=== PATIENT | female | born 2000 | race Caucasian/White ===

== ENCOUNTER 2021-10-11 11:11 | Outpatient (CLI) | payer BC, MEDICAID, SELFPAY ==
[2021-10-11] VITALS (12 sets, daily range): BP systolic 116–137; BP diastolic 68–90; PULSE 71–97; RESP 18; TEMP 36.7–37.9; BMI 41.3
--- NOTE | 2021-10-11 13:35 | PC.NURSE ---
TEMP DONE WITH A DIFFERENT THERMOMETER BECAUSE I WAS TOLD THAT THE ONE IN OB 13 HAS BEEN READING VERY DIFFERENT TEMPERATURES. SO TEMP WITH MONITORS THERMOMETER WAS 99.1 AND WITH DIFFERENT ONE WAS 98.1 ORALLY.
[2021-10-11 13:39] LABS: Amphetamines Screen Urine Negative (Negative); Barbiturates Screen Urine Negative (Negative); Benzodiazepines Screen Urine Negative (Negative); Cocaine Screen Urine Negative (Negative); Opiate Screen Urine Negative (Negative); PCP Screen Urine Negative (Negative); THC Screen Urine Negative (Negative)
[2021-10-11 15:22] LABS: Adenovirus Not Detected (NOT DETECT); Chlamydia Pneumoniae Not Detected (NOT DETECT); Coronavirus 229E,HKU1,NL63,OC4 Not Detected (NOT DETECT); Human Metapneumovirus Not Detected (NOT DETECT); Human Rhinovirus/Enterovirus Not Detected (NOT DETECT); Influenza A Not Detected (NOT DETECT); Influenza A H1 Not Detected (NOT DETECT); Influenza A H1-2009 Not Detected (NOT DETECT); Influenza A H3 Not Detected (NOT DETECT); Influenza B Not Detected (NOT DETECT); Mycoplasma Pneumoniae Not Detected (NOT DETECT); Parainfluenza Virus Type 1 Not Detected (NOT DETECT); Parainfluenza Virus Type 2 Not Detected (NOT DETECT); Parainfluenza Virus Type 3 Not Detected (NOT DETECT); Parainfluenza Virus Type 4 Not Detected (NOT DETECT); Respiratory Syncytial Virus A Not Detected (NOT DETECT); Respiratory Syncytial Virus B Not Detected (NOT DETECT); SARS-COV-2 Not Detected (NOT DETECT)
== END 2021-10-11 22:31 | disposition home or self-care (01) ==
LOC: OPOB 11:12 → OBGYN 11:13
PROVIDERS: Family Provider Nurse Practitioner; PCP Nurse Practitioner; Visit Provider Family Medicine
DX: O26.899 Other specified pregnancy related conditions, unspecified trimester (principal); Z3A.00 Weeks of gestation of pregnancy not specified; R10.9 Unspecified abdominal pain
CPT/HCPCS: 59025; 80306; 87081; 87491; 87635; 99211

== ENCOUNTER 2021-10-11 23:44 | Inpatient (IN) | payer BC, MEDICAID, SELFPAY ==
[2021-10-11] VITALS (8 sets, daily range): BP systolic 120–137; BP diastolic 74–83; PULSE 74–109; RESP 16–18; BMI 41.3
[2021-10-12] VITALS (92 sets, daily range): BP systolic 85–167; BP diastolic 47–100; PULSE 65–129; RESP 16–18; TEMP 36.4–36.9; O2SAT 98–100
[2021-10-12] MEDS: lactated ringers 1,000 ML 999 ML IV ×2 (00:13→01:44)
[2021-10-12] MEDS: ampicillin 2,000 MG in sodium chloride 0.9% (plus) 50 ML 100 MG IV (00:13)
[2021-10-12 00:23] LABS: Basophils % 0.2 %; Eosinophils # 0.1 10^3/uL (0.0-0.8); Eosinophils % 0.5 %; Hematocrit 34.8 % (37.0-47.0); Hemoglobin 11.3 g/dL (11.5-15.3); Lymphocytes % 14.9 %; Mean Corpuscular HGB Conc 32.5 g/dL (30.0-36.0); Mean Corpuscular Hemoglobin 25.6 pg (28.0-34.0); Mean Corpuscular Volume 78.7 fl (81-99); Mean Platelet Volume 10.5 fL (7.4-10.4); Monocytes # 0.6 10^3/uL (0.2-0.9); Monocytes % 4.6 %; Neutrophils % 79.3 %; Nucleated Red Blood Cells % 0 %; Platelet Count 381 10^3/cmm (130-400); Red Blood Count 4.42 10^6/uL (4.1-5.3); Red Cell Distribution Width 15.4 % (12.1-15.1); White Blood Count 13.1 10^3/uL (4.0-10.0)
[2021-10-12] MEDS: fentaNYL 50 mcg/mL INJ 2mL IVP (00:53)
--- NOTE | 2021-10-12 01:25 | ANES.PREANE2 ---
Pre-Anesthetic Assessment Pre-Anesthetic Assessment: Height/Weight: Height 1.57 m Weight 102.512 kg Pulse Resp BP Pulse Ox 116 H 16 167/77 99 10/12/21 01:23 10/12/21 00:53 10/12/21 01:23 10/12/21 01:21 Preop Diagnosis: Term labor Proposed Procedure: CHRIS Was Beta Talisha taken within 24 hours: N/A Was Clonidine taken within 24 hours: N/A Social: Social History: No alcohol and No tobacco Exam: Pre-Anes Outpt Exam: alert, oriented x 3, clear to auscultation bilaterally and regular rate & rhythm Airway: Submandibular: WNL Cervical ROM: WNL MP: 2 Dentition: Full History/ROS: No significant history except as noted and No significant complaints Pulmonary: Pulmonary: None reported CV/HEM: CV/HEM: None reported : : None reported Hepatic: Hepatic: None reported GI: GI: None reported Metabolic: Metabolic: None reported Musc/skel: Musc/skel: None reported Neuropsych: Neuropsych: None reported Anesthetic Plan: ASA status: 2 Anesthesia: Anesthesia Evaluation and Regional (specify below) Risk of > 500 ml blood loss (7ml/kg in children): No Meds/Allergies Current Medications: Current Medications Generic Name Dose Route Start Last Admin Trade Name Freq PRN Reason Stop Dose Admin Fentanyl 25 - 100 mcg 10/11/21 23:41 10/12/21 00:53 Fentanyl 50 Mcg/ Ml Inj 2ml IVP 25 mcg Q1H PRN Administration SEVERE PAIN Lactated Ringer's 1,000 mls @ 999 m ls/hr 10/11/21 23:42 10/12/21 00:13 Lactated Ringers IV 999 mls/hr .Q1H1M PRN Administration See label comment s PFSH Anesthesia Female Reproductive History: : 1 Data Anesthesia CBC & Chem 7: 10/12/21 00:00 Other Labs: Laboratory Results - last 48 hr 10/12/21 00:00 WBC 13.1 H RBC 4.42 Hgb 11.3 L Hct 34.8 L MCV 78.7 L MCH 25.6 L MCHC 32.5 RDW 15.4 H Plt Count 381 MPV 10.5 H Neut % (Auto) 79.3 Lymph % (Auto) 14.9 Carlton % (Auto) 4.6 Eos % (Auto) 0.5 Baso % (Auto) 0.2 Neut # (Auto) 10.40 H Lymph # (Auto) 2.0 Carlton # (Auto) 0.6 Eos # (Auto) 0.1 Baso # (Auto) 0.0 Nucleated RBC % (auto) 0 Nucleated RBCs # 0.0 Cardiac Studies: No Data to Display
--- NOTE | 2021-10-12 01:27 | P.ANES_ITS ---
Anesthesia Procedures Procedure/Date: 10/12/21 Epidural: Time Out Performed: Yes Consents Signed: Procedure Consent Consent: requested by attending/covering physician and from patient Lumbar Level: L2-L3 Epidural position: sitting Epidural procedure: sterile prep of area, 1% lidocaine to numb the area, 18 g needle, neg for paresthesia, test d ose given, 1.5% xylocaine 1:200k epi (5cc), 0.2% Ropivacaine bolus ml (4cc and Fentanyl 100 mcg), no systemic response, sterile dressing applied, L.U.D. no apparent complications and 0.2% Ropiavacaine @ mls/hr (11cc/hour)
[2021-10-12] MEDS: ampicillin 1,000 MG in sodium chloride 0.9% (plus) 50 ML 100 MG IV ×2 (03:26→07:21)
[2021-10-12] MEDS: dextrose 5%-lactated ringers 1,000 ML 125 ML IV (07:22)
--- NOTE | 2021-10-12 08:37 | PM.OBGYHP ---
Providers/Chief Complaint Admitting Physician: Elsie Fermin Primary Care Provider: DYANA Morrell Chief Complaint: contractions HPI CABLE TELEVISION TECHNICIAN History of Present Illness Melanie Morrow is a 20 year old G1 female here in spontaneous active labor. She is 40w 5 d gestation by us done in the first trimester at 10 weeks gestation. Repeat us done at 33 weeks was reportedly consistent. Her is uncomplicated per her, but she has had scant care. She has had 2 er visits due to spotting that resolved and one phone call with a inspector automatic typewriter. Present Details : 1 Para: 0 Labs Rubella: Non-Immune RPR: Negative GBS: Unknown Review of Systems General: Reports: 10 or more systems reviewed and unremarkable except in HPI and below Medications/Allergies Home Medications Medication Instructions Recorded Confirmed Last Taken Type No Known Home Medications 10/11/21 10/11/21 Unknown History Allergies Allergy/AdvReac Type Severity Reaction Status Date / Time No Known Allergies Allergy Verified 10/11/21 22:26 PFSH CABLE TELEVISION TECHNICIAN PFSH: Family History (Updated 10/12/21 @ 08:40 by Elsie Fermin DO) Denies family history of CAD (coronary artery disease) Clotting disorder Psychiatric illness Chronic kidney disease (CKD) Anesthesia complication Bleeding disorder Lung disease Cancer Hypertension Stroke Social History (Updated 10/12/21 @ 09:41 by Elsie Fermin DO) Smoking and tobacco status: never smoked Alcohol intake: never Substance/Drug Use: never History History History 1 Term 0 Miscarriages/Ectopic 0 0 Living Children 0 Care Comments: no care Vitals/I&O/Wt Last Vital Signs Temp 97.6 F 10/12/21 07:32 Pulse 106 H 10/12/21 08:33 Resp 16 10/12/21 00:53 BP 130/79 10/12/21 08:33 Pulse Ox 100 10/12/21 02:06 10/11/21 10/12/21 10/12/21 22:59 06:59 14:59 Intake Total 1366.4 / 1366.4 883.6 / 883.6 Output Total 600 / 600 Balance 766.4 / 766.4 883.6 / 883.6 Weight last 48 hrs Weight 226 lb Physical Exam Const: COMMON NORMALS: no acute distress and patient oriented x3 GENERAL APPEARANCE: cooperative NUTRITIONAL APPEARANCE: obese HENMT: COMMON NORMALS: normocephalic, atraumatic, hearing grossly normal bilaterally and moist oral mucous membranes Eye: COMMON NORMALS: conjunctivae normal and no scleral icterus GENERAL EYE: appearance normal, both eyes and all related structures Neck/C-Spine: COMMON NORMALS: no JVD GENERAL: Yes normal visual inspection and Yes trachea midline Resp: COMMON NORMALS: normal respiratory effort and No use of accessory muscles EFFORT & INSPECTION: Yes able to speak in complete sentences Cardio: COMMON NORMALS: no JVD and regular rate GI: COMMON NORMALS: Soft to palpation and non-tender INSPECTION: Yes normal to inspection : MANUAL OB EXAM: dilated 9 cm, effaced fully and station 0 UTERUS PALPATION: Yes Other OB uterine findings (uterus cwd) AMNIOTIC FLUID: clear Extremity: COMMON NORMALS: normal to inspection, capillary refill normal and no clubbing, cyanosis or edema Neuro: COMMON NORMALS: patient oriented x3, moves all extremities, no focal motor deficits and no sensory deficits noted Psych: COMMON NORMALS: mental status grossly normal, Normal thought process present, cooperative, normal affect and speech normal Urinary Catheter Management^: Higuera: Cath Placed During This Visit: yes Reason for Continuing Indwelling Catheter: Other Urinary Catheter Date of Insertion: 10/12/21 Urinary Catheter Time of Insertion: 02:39 Sepsis: Is patient septic: No Data : 10/12/21 00:00 A&P Assessment and plan (1) Intrauterine : Status: Acute (2) Active labor at term: Status: Acute (3) No care in current : Status: Acute Additional A&P Information Group B Strep status unknown Anticipate epidural tx with abx for unknown gbs Attestations Medical Necessity Statement*: here at term in active labor anticipate Coding Level of Care Code Acute Orthotics Assistant for Chg Fwd Exam Comprehensive Diagnoses Intrauterine Z34.90 Active labor at term No care in current O09.30
--- NOTE | 2021-10-12 09:42 | P.PCNOB_ITS ---
Delivery Note: Date of delivery: October 12, 2021 Pre-Delivery Course: pt began labor yesterday and was seen here for evaluation and discharged. She represented with frequent painful contractions and cervical change and was admitted. FHTs category 1 with periods of cat 2 that resolved easily with position change. Delivery: pt delivered a viable female from the oa position over a 2nd degree midline laceration with adequate epidural anesthesia. Nuchal cord reduced easily x 1. Baby placed on the maternal abdomen and delayed cord clamp was applied and cut. 3vc noted. Baby cried upon delivery and was noted to be vigorous. Placenta delivered spontaneously intact. EBL 300ml. Laceration repaired in a layered fashion with 3-0 vicryl. Cervix and rectum intact. Post-Delivery Status: mom and baby stable History History History 1 Term 0 Miscarriages/Ectopic 0 0 Living Children 0 A&P Assessment and plan (1) Intrauterine : Status: Acute (2) Active labor at term: Status: Acute (3) No care in current : Status: Acute Additional A&P Information spontaneous vaginal delivery complicated by unknown GBS status and scant care. Coding Level of Care Code Acute Senior Specialist for Chg Fwd Diagnoses Intrauterine Z34.90 Active labor at term No care in current O09.30
[2021-10-12] MEDS: acetaminophen 325 mg Tablet 650 MG PO (11:08)
[2021-10-12] MEDS: prenatal vitamin Capsule 1 CAP PO (11:08)
--- NOTE | 2021-10-12 11:54 | PC.NURSE ---
hotline call made for No care. Spoke with Sariah #[id number]
[2021-10-12] MEDS: benzocaine-menthol 78 gm Canister 1 SPRAY TOPICAL (13:30)
[2021-10-12] MEDS: lanolin oint 7 gm 1 APPLIC TOPICAL (13:30)
[2021-10-12] MEDS: ibuprofen 800 mg tablet PO ×2 (13:30→21:23)
--- NOTE | 2021-10-12 14:12 | PC.NURSE ---
pt up to bathroom with minimal assistance. pt voided 1000mL. teto care demonstrated and performed by pt. pad,underwear, and gown changed
--- NOTE | 2021-10-12 14:22 | PC.NURSE ---
to ob8. oriented to room/call light. proud parent pack discussed
[2021-10-12 21:39] LABS: Hematocrit 29.6 % (37.0-47.0); Hemoglobin 9.5 g/dL (11.5-15.3); Mean Corpuscular HGB Conc 32.1 g/dL (30.0-36.0); Mean Corpuscular Hemoglobin 25.5 pg (28.0-34.0); Mean Corpuscular Volume 79.4 fl (81-99); Mean Platelet Volume 10.6 fL (7.4-10.4); Platelet Count 309 10^3/cmm (130-400); Red Blood Count 3.73 10^6/uL (4.1-5.3); Red Cell Distribution Width 15.6 % (12.1-15.1)
--- NOTE | 2021-10-13 08:05 | PM.OBGYDC ---
Discharge Providers SAFETY ADVISOR Date of Admission: 10/11/21 23:44 Date of Discharge: 10/13/21 Attending Provider at Admission: Elsie Fermin Attending Provider at Discharge: gelacio Primary Care Provider: - PRE-DELIVERY DIAGNOSIS: 20-year-old 1 para 0 at 40+ weeks Active labor Unknown GBS No care POST-DELIVERY DIAGNOSIS: Vaginal delivery on 10/12/2021 HOSPITAL COURSE: She underwent an uncomplicated vaginal delivery on 10/12/2021. She did well on day 0 and was ambulating well, tolerating regular diet, voiding freely, passing flatus. She was breast-feeding without difficulty and bonding well with her daughter. Pain was well-controlled with by mouth pain medication. She denied nausea, vomiting, fever, chills, shortness of breath, leg pain. She had moderate vaginal bleeding. On day # 1 she continued to do well with stable vital signs and stable hemoglobin at 9.5. She was a little tachycardic on day zero but this resolved on day #1. Repeat hemoglobin 28 hours after delivery showed stable from previous value at 9.4. Patient denied any symptoms. She was discharged home on day 1 in a stable condition, as she desired early discharge. Warning signs for endometritis, mastitis, DVT/PE were reviewed with her. Post delivery activity restrictions were also reviewed with her at all her questions were answered to her satisfaction. She is undecided about what she wants to use for contraception and plans on using abstinence for now. EXAM AT DISCHARGE: Gen.: No acute distress Heart: S1-S2 heard, regular rate and rhythm Lungs: Clear to auscultation bilaterally Abdomen: Soft, fundus firm below umbilicus, Legs: No calf tenderness, +1 bilateral pitting pedal edema. CONDITION AT DISCHARGE: Stable This documentation was created by [employer] apartment property manager software (known for inherent apartment property manager error). Every effort was made to assure accuracy of apartment property manager. Any obvious errors or omissions should be clarified with the author of the document. Diagnoses at Discharge Discharge Diagnosis (1) Intrauterine : Status: Acute (2) Active labor at term: Status: Acute (3) No care in current : Status: Acute Reason for Visit Reason for Visit: contractions Information Peripartum Data: Delivery Method: Vaginal Physical Exam Urinary Catheter Management^: Higuera: Cath Placed During This Visit: yes, but has since been removed by the nurse Reason for Continuing Indwelling Catheter: Decision to DC Catheter Urinary Catheter Date of Insertion: 10/12/21 Urinary Catheter Time of Insertion: 02:39 Date Urinary Catheter Removed: 10/12/21 Time Urinary Catheter Discontinued: 08:50 History History History 1 Term 0 Miscarriages/Ectopic 0 0 Living Children 0 Discharge Data Data Completed and Pending: Labs from last 24 hours 10/12/21 21:30 WBC 13.0 H RBC 3.73 L Hgb 9.5 L Hct 29.6 L MCV 79.4 L MCH 25.5 L MCHC 32.1 RDW 15.6 H Plt Count 309 MPV 10.6 H Vitals: Last Vital Signs Temp 98.3 F 10/12/21 23:00 Pulse 71 10/12/21 23:00 Resp 16 10/12/21 23:00 BP 112/72 10/12/21 23:00 Pulse Ox 98 10/12/21 23:00 Discharge Plan Discharge Patient Disposition: Home Condition: Stable Prescriptions: New ibuprofen 800 mg tablet 800 mg PO Q8H Qty: 30 RF: 0 docusate sodium 100 mg Capsule 100 mg PO BID PRN (Reason: constipation) Qty: 30 RF: 0 Continued No Known Home Medications RF: 0 Discharge Orders: Discharge Order (Routine); Ordered 10/13/21 Ordered By: Briana Briones Referrals: Briana Briones MD [Physician] - Patient Instructions: Opioid Safety Activity Restrictions/Additional Instructions: Pelvic rest for 6 weeks, no heavy lifting for 6 weeks. Follow-up for 6-week visit with Zaida Tran or Dr. De Leon. Discharge Attestations SAFETY ADVISOR Time Spent in Discharge Care*: greater than 30 min Coding Level of Care Code Acute Applications Coordinator for Chg Fwd Diagnoses Intrauterine Z34.90 Active labor at term No care in current O09.30
[2021-10-13 08:42] VITALS: BP 116/75; PULSE 96; RESP 18; TEMP 36.8; O2SAT 98
[2021-10-13] MEDS: prenatal vitamin Capsule 1 CAP PO (08:43)
[2021-10-13] MEDS: docusate sodium 100 mg Capsule PO (08:43)
[2021-10-13] MEDS: ibuprofen 800 mg tablet PO (08:43)
--- NOTE | 2021-10-13 10:11 | ANE.PACU2 ---
Inpatient post-anesthesia follow up: Airway intact: Yes Vital signs: Temperature 98.2 F Pulse Rate 96 Respiratory Rate 18 Blood Pressure 116/75 Pulse Oximetry 98 Oxygen Delivery Me thod Room Air Oxygen Flow Rate Fraction of Inspir ed Oxygen Nausea and vomiting: No Pain level: 2 Mental status: Baseline
[2021-10-13 11:57] LABS: Basophils % 0.2 %; Eosinophils # 0.1 10^3/uL (0.0-0.8); Eosinophils % 1.4 %; Hematocrit 29.2 % (37.0-47.0); Hemoglobin 9.4 g/dL (11.5-15.3); Lymphocytes # 1.7 10^3/uL (0.8-4.8); Lymphocytes % 17.5 %; Mean Corpuscular HGB Conc 32.2 g/dL (30.0-36.0); Mean Corpuscular Hemoglobin 25.5 pg (28.0-34.0); Mean Corpuscular Volume 79.3 fl (81-99); Mean Platelet Volume 10.5 fL (7.4-10.4); Monocytes # 0.4 10^3/uL (0.2-0.9); Monocytes % 4.4 %; Neutrophils # 7.15 10^3/uL (1.8-7.7); Nucleated Red Blood Cells % 0 %; Platelet Count 300 10^3/cmm (130-400); Red Blood Count 3.68 10^6/uL (4.1-5.3); Red Cell Distribution Width 15.8 % (12.1-15.1); White Blood Count 9.4 10^3/uL (4.0-10.0)
[2021-10-13] MEDS: measles,mumps,rubella pf Vial (w/diluent) 0.5 ML SUBCUT (13:42)
[2021-10-13 14:18] VITALS: BP 122/78; PULSE 75; RESP 16; TEMP 36.8; O2SAT 98
[2021-10-13 14:20] VITALS: BP 122/78; PULSE 75; RESP 16; TEMP 36.8; O2SAT 98
== END 2021-10-13 14:13 | disposition home or self-care (01) | DRG 807 ==
LOC: OPOB 23:45 → OBGYN 23:45
PROVIDERS: Obstetrics & Gynecology; Admitting Provider Obstetrics & Gynecology; Family Provider Nurse Practitioner; PCP Nurse Practitioner; Visit Provider Obstetrics & Gynecology
DX: O69.81X0 Labor and delivery complicated by cord around neck, without compression, not applicable or unspecified (principal); Z37.0 Single live birth; O70.1 Second degree perineal laceration during delivery; Z3A.40 40 weeks gestation of pregnancy
CPT/HCPCS: 12345; 36415; 51702; 59025; 59409; 85025; 85027; 90707; 96372; 99211; J0290; J2795; J3010

== ENCOUNTER → 2023-01-15 12:18 | Outpatient (BNVA) | payer OTHER, BC, SELFPAY | PROVIDERS: Visit Provider Nurse Practitioner Women's Health | DX: Z01.419 Encounter for gynecological examination (general) (routine) without abnormal findings (principal) | CPT/HCPCS: 86592; 86803; 87340; 87491; 87591; 87661; 87806; 88175 ==